=== PATIENT | female | born 1985 | race Caucasian/White ===

== ENCOUNTER 2017-11-18 14:39 | Outpatient (CLI) | payer BC ==
[~2017-11-18 14:39] MED LIST: Gadobenate Dimeglumine 529 MG/1 ML (20ML VIAL) ONE
--- NOTE | 2017-11-18 18:22 | MRI ---
BRAIN AND IACS MRI: Date: 11/18/17 HISTORY: Right ear hearing loss x2 months. COMPARISON: None. TECHNIQUE: Brain and IACs MRI performed with and without intravenous Gadolinium administration. Multisequential, multiplanar imaging performed. FINDINGS: Calvarium has a normal T1 marrow signal intensity. Midline brain parenchymal structures are unremarka ble. There appears to be an anterior right parafalcine meningioma without significant mass effect. There are prominent T2 Hypointensities with associated enhancement involving the anterior interhemisp heric fissure. A small vascular malformation cannot be completely excluded. Central arterial flow-voids are maintained. Absent restricted diffusion. No parenchymal mass, mass effect, or midline shift. Brain volume, age-appropriate. Cortical cardona-whit e matter differentiation preserved. Ventricles and sulci are patent and symmetric. No significant T2 or FLAIR white matter hyperintensities. Adequate aeration of the sinuses and mastoid air cells. No pathologic enhancement of the brain parenchyma. MRI OF IACS/INTERNAL CANAL: There is symmetric signal intensity of inner ear structures. There is symmetric signal intensity of t he 5th, 7th/8th cranial nerve complexes. There is no evidence of abnormal enhancement in either 7th/8 th cranial nerve complex or either inner ear structures. 5th cranial nerves are also unremarkable. Based on the thin section axial T2-weighted images, there appears to be predominant T1/T2 hypointense lesion measuring 0.6 x 0.3 cm. There is questionable central T2 hyperintensity and possible enhaceme nt. Differential includes hypertrophy involving the inferior posterior aspect of the skull base (tem poral bone) vs heavily calcified meningioma. There appears to be resultant narrowing of the medial as pect of the right internal auditory canal, limited in evaluation. This lesion is hypointense on all o f the sequences and is felt to represent bony proliferation. Better interrogation with a temporal bon es CT is recommended. IMPRESSION: 1. Possible vascular malformation in the anterior interhemispheric fissure of doubtful significance. 2. Anterior right parafalcine meningioma. 3. No abnormal signal intensity in the 7th/8th cranial nerve complex or either inner ear structures. 4. Asymmetric bony prominence along the posterior aspect of the right internal auditory canal, likel y due to prominence of the right temporal bone. The possibility of a small heavily calcified meningio ma cannot be excluded. CT of the IACs/temporal bones is recommended. POS: [facility]
== END 2017-11-18 14:40 | disposition home or self-care (01) ==
LOC: TBSIIMAG 14:39
PROVIDERS: ATTEND Otolaryngology Plastic Surgery within the Head & Neck
DX: H90.41 Sensorineural hearing loss, unilateral, right ear, with unrestricted hearing on the contralateral side (principal); H93.11 Tinnitus, right ear; D32.9 Benign neoplasm of meninges, unspecified
CPT/HCPCS: 70553; A9579

== ENCOUNTER 2018-01-21 06:15 | Day surgery (SDC) | payer BC ==
[2018-01-20 13:32] VITALS: BMI 37.1
[2018-01-21] MEDS ORDERED: Heparin 10,000 UNITS/1 ML VIAL ONE ×2 (06:30→06:40)
[2018-01-21] MEDS ORDERED: Lidocaine 1% (PF) 30 ML VIAL ONE (06:31)
[2018-01-21] MEDS ORDERED: Midazolam HCl 2 mg/2 ml Vial ONE (08:15)
[2018-01-21] MEDS ORDERED: Iopamidol 370 76% 100 ML VIAL ONE (08:21)
--- NOTE | 2018-01-22 13:25 | CCL ---
PROCEDURE NOTE: DATE: 01/21/2018. SURGEON: Dr. Lopez. CAMPUS COORDINATOR: None. INDICATION: Rule AVM dural AV fistula. PROCEDURE: Dimensional cerebral angiogram. ANESTHESIA: Local. TECHNIQUE: The patient was brought into the angiogram suite and placed on the table in the supine position. Bot h groins were prepped and draped in the usual sterile fashion. 1% Lidocaine was used to inject the r ight groin. A 5 [place] micropuncture set was used to gain access to the right common femoral artery. Using the Seldinger technique, a 5 [place] sheath was placed. A 5 [place] diagnostic catheter was pa ssed through the sheath up to the aortic arch where the right common carotid artery was selectively c atheterized. An AP and lateral angiogram was performed. The catheter was then placed in the left co mmon carotid artery where an AP and lateral angiogram was performed. All catheters were then removed . Hemostasis was maintained throughout. The wound was then closed in anatomic layers and a pressure dressing was applied. There were no known procedural complications. Cerebral angiography performed from the right common carotid artery reveals no evidence for an arteri ovenous malformation or dural arteriovenous fistula. There is no evidence for early filling vein, no r is there is there evidence for any other vascular malformation. Cerebral angiography performed from the left common carotid artery and reveals no evidence for arteri ovenous malformation, dural arteriovenous fistula, or other vascular anomaly. IMPRESSION: The patient underwent successful angiography of both common carotid arteries to include evaluation of the external and internal carotid arteries. The angiogram is normal. POS: [facility]
== END 2018-01-21 11:34 | disposition home or self-care (01) ==
LOC: CCL 06:15
PROVIDERS: ATTEND Neurological Surgery
DX: Q27.30 Arteriovenous malformation, site unspecified (principal); H91.91 Unspecified hearing loss, right ear; F41.9 Anxiety disorder, unspecified; E07.9 Disorder of thyroid, unspecified; D32.9 Benign neoplasm of meninges, unspecified; D49.6 Neoplasm of unspecified behavior of brain; Z87.891 Personal history of nicotine dependence; Z79.899 Other long term (current) drug therapy; Z88.5 Allergy status to narcotic agent; Z88.2 Allergy status to sulfonamides; Z88.1 Allergy status to other antibiotic agents; Z88.8 Allergy status to other drugs, medicaments and biological substances
CPT/HCPCS: 36223; J1644; J2001; J2250